=== PATIENT | male | born 1995 | race Two or more races ===

== ENCOUNTER 2016-07-24 01:11 | Emergency (ER) | payer OTHER ==
[2016-07-24] MEDS ORDERED: oxyCODONE/Acetamin 5/325 MG* TAB PO ONE (02:06)
[2016-07-24] MEDS ORDERED: Ketorolac INJ* 30 MG/ML 1 ML VIAL IM ONE (02:06)
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
[2016-07-24 02:34] VITALS: BP 132/76
--- NOTE | 2016-07-24 08:12 | RAD ---
Indication: LEFT collarbone pain post fall. Comparison: No relevant prior exams available on the [facility] PACS for comparison. Technique: Internal rotation AP, external rotation Grashey, scapular Y, axillary views LEFT shoulder. AP and cephalad oblique LEFT clavicle views. Report: Moderately comminuted fracture at the middle third of the LEFT clavicle with up to 2.5 cm inferior displacement of the dominant distal fragment. Soft tissue swelling and tenting of the overlying skin. Negative for LEFT rib fracture within the [id number]. Negative for LEFT pneumothorax. Normal acromioclavicular and glenohumeral joint alignment. No additional fracture evident about the shoulder. IMPRESSION: Comminuted displaced midclavicular fracture.
--- NOTE | 2016-07-24 08:12 | RAD ---
Indication: LEFT collarbone pain post fall. Comparison: No relevant prior exams available on the [facility] for comparison. Technique: Internal rotation AP, external rotation Grashey, scapular Y, axillary views LEFT shoulder. AP and cephalad oblique LEFT clavicle views. Report: Moderately comminuted fracture at the middle third of the LEFT clavicle with up to 2.5 cm inferior displacement of the dominant distal fragment. Soft tissue swelling and tenting of the overlying skin. Negative for LEFT rib fracture within the [id number]. Negative for LEFT pneumothorax. Normal acromioclavicular and glenohumeral joint alignment. No additional fracture evident about the shoulder. IMPRESSION: Comminuted displaced midclavicular fracture.
== END 2016-07-24 02:32 | disposition home or self-care (01) ==
LOC: ED 01:11
DX: S42.002A Fracture of unspecified part of left clavicle, initial encounter for closed fracture (principal); V19.9XXA Pedal cyclist (driver) (passenger) injured in unspecified traffic accident, initial encounter; Y93.9 Activity, unspecified; Y92.9 Unspecified place or not applicable; Y99.9 Unspecified external cause status
CPT/HCPCS: 96372; 99282; A9270-GY; J1885